=== PATIENT | male | born 1960 | race Hispanic/Latino ===

== ENCOUNTER → 2023-10-21 | Outpatient (CLI) | payer OTHER, MEDICARE | END | disposition home or self-care (01) | LOC: RAH 13:41 | PROVIDERS: ATTEND Family Medicine | DX: Z12.2 Encounter for screening for malignant neoplasm of respiratory organs (principal); C71.6 Malignant neoplasm of cerebellum; J41.0 Simple chronic bronchitis; F17.200 Nicotine dependence, unspecified, uncomplicated; M47.815 Spondylosis without myelopathy or radiculopathy, thoracolumbar region; I25.10 Atherosclerotic heart disease of native coronary artery without angina pectoris | CPT/HCPCS: 71250 ==